=== PATIENT | female | born 1995 | race Caucasian/White ===

== ENCOUNTER 2021-11-11 22:35 | Emergency (ER) | payer MEDICAID ==
[2021-11-11 23:12] VITALS: BP 136/90; PULSE 92
[2021-11-11] MEDS: Amoxicillin 500 MG Cap PO ONE (23:17)
== END 2021-11-11 23:24 | disposition home or self-care (01) ==
LOC: KA.ED 22:35
DX: K08.89 Other specified disorders of teeth and supporting structures (principal); E66.9 Obesity, unspecified; Z68.31 Body mass index [BMI] 31.0-31.9, adult
CPT/HCPCS: 99282; 99283; A9270-GY